=== PATIENT | male | born 1950 | race Caucasian/White ===

== ENCOUNTER 2019-11-19 22:26 | Emergency (ER) | payer SELFPAY ==
[2019-11-19] MEDS ORDERED: MVI, ADULT NO.4 WITH VIT K 10 ML, THIAMINE HCL IV 100 MG in 0.9 % SODIUM CHLORIDE 1000M... IV SCH ×3 (23:00)
[2019-11-19 23:14] LABS: ABSOLUTE NEUTROPHIL COUNT 5.85; BASO % 0.8 % (0-6); EOS % 2.6 % (0-6); GRAN % 65.4 % (47-80); HEMATOCRIT 38.7 % (42.0-52.0); HEMOGLOBIN 12.7 gm/dl (14.0-18.0); LYMPH % 23.9 % (16-45); MEAN CELL VOLUME 95.6 fl (81-97); MEAN CORPUSCULAR HGB CONC 32.8 g/dl (32-36); MEAN PLATELET VOLUME 9.6 fl (7.4-10.4); MONO % 7.3 % (0-9); PLATELET COUNT 210 K/uL (130-400); RED BLOOD COUNT 4.05 M/uL (4.40-5.70); RED CELL DISTRIBUTION WIDTH 14.2 % (11.5-14.5); WHITE BLOOD COUNT W/O DIFF 8.9 K/uL (4.2-12.2)
[2019-11-19 23:15] LABS: MEAN CORPUSCULAR HEMOGLOBIN 31.3 pg (27-33)
[2019-11-19 23:34] LABS: BLOOD UREA NITROGEN 11 mg/dL (8-23); CREATININE 0.8 mg/dL (0.7-1.2); EST GLOMERULAR FILTRATION RATE > 60 mL/min
[2019-11-19 23:35] LABS: TOTAL PROTEIN 6.8 g/dL (6.6-8.7)
[2019-11-19 23:36] LABS: ALCOHOL 0.021 g/dL (0-0.010)
[2019-11-19 23:37] LABS: GLUCOSE,RANDOM 86 mg/dL (74-109)
[2019-11-19 23:39] LABS: ALT/SGPT 25 U/L (<41); AST/SGOT 38 U/L (10.0-50.0)
[2019-11-19 23:40] LABS: ALBUMIN 4.5 g/dL (4.0-5.0); ALKALINE PHOSPHATASE 60 U/L (40-129)
--- NOTE | 2019-11-19 23:47 | RADIOLOGY REPORT ---
EXAMINATION: HAND, LEFT 3 VIEWS EXAM DATE: 11/19/2019 11:37 PM TECHNIQUE: 3 views of the left hand. INDICATION: fall, left hand pain COMPARISON: none ENCOUNTER: Initial FINDINGS: No evidence of acute fracture or dislocation. Normal carpal alignment. The joint spaces are preserved . Bone mineralization is normal. IMPRESSION: No evidence of acute fracture.. Dictated by: Yonny Garvey MD on 11/19/2019 11:43 PM. .
--- NOTE | 2019-11-19 23:49 | RADIOLOGY REPORT ---
EXAMINATION: Left Hip Minimum Two Views EXAM DATE: 11/19/2019 11:37 PM TECHNIQUE: AP pelvis and left frog leg lateral hip views INDICATION: fall, left hip pain COMPARISON: None ENCOUNTER: Initial FINDINGS: Acute left femoral neck fracture with cephalad translation of the distal component. No dislocation of the femoral head from the acetabulum. The pelvis appears intact. IMPRESSION: Acute displaced left femoral neck fracture. Dictated by: Yonny Garvey MD on 11/19/2019 11:45 PM. .
--- NOTE | 2019-11-19 23:51 | CT SCAN REPORT ---
EXAMINATION: CT Head without IV Contrast EXAM DATE: 11/19/2019 11:38 PM TECHNIQUE: Standard protocol CT images of the head were obtained without intravenous contrast. Ruiz l and sagittal reconstructed images were created. INDICATION: 69-year-old male fell. Alcohol use. Poor historian. COMPARISON: None. HAND DOMINANCE: Unknown. ENCOUNTER: Initial. FINDINGS: The basal cisterns, ventricular system and sulci overlying the cerebral convexities are well visualiz ed and are normal in appearance for the patient's age. There is nothing to suggest an acute ischemic event, brain parenchymal mass or acute intracranial hem orrhage. There is probably minimal chronic microvascular white matter ischemic change. There is no subdural hematoma. There is no subarachnoid blood. The orbits and mastoid regions are normal in appearance. There is mild mucosal thickening along the p osterior wall of the left sphenoid sinus versus layering mucinous material. There is very mild mucosa l prominence in the maxillary sinuses. There are no fluid levels in the paranasal sinuses. There is no skull fracture. IMPRESSION: 1. No acute intracranial process. 2. Probable minimal chronic microvascular white matter ischemic change. Dictated by: Lionel Cates DO on 11/19/2019 11:44 PM. .
[2019-11-19] MEDS ORDERED: HYDROMORPHONE HCL 2 MG/ML VIAL IVP ONE (23:57)
--- NOTE | 2019-11-20 00:05 | Emergency Department Record ---
History of Present Illness - General Chief Complaint: Fall Injury Stated Complaint: FALL/HIP PAIN Time Seen by Provider: 11/19/19 22:30 Source: Patient, EMS Mode of Arrival: EMS Limitations: No limitations - History of Present Illness Initial Comments: pt was found outside after a slip on the ice. he was unable to get back up. ems felt he was intxicated. he cannot bear weight.it is unknown how long he was outside. it is 16 degrees out. Complaint: Fall Onset/Timin -: Hour(s) Fall From: Standing When Fall Occurred: 1 hour [employer] Fall Witnessed: No Place Fall Occurred: Home Loss of Consciousness: Unsure Prolonged Down Time?: Minute(s) Symptoms Prior to Fall: Other Location: Face, Pelvis Context: Alcohol use Associated Symptoms: Denies - Mariaa Coma Scale Eye Response: (4) Open spontaneously Motor Response: (6) Obeys commands Verbal Response: (5) Oriented Mariaa Total: 15 - Related Data Home Medications Medication Instructions Recorded Confirmed Last Taken Aspirin 1 tab PO DAILY 11/19/19 11/19/19 Unknown Allergies Allergy/AdvReac Type Severity Reaction Status Date / Time No Known Drug Allergies Allergy Verified 11/19/19 22:42 Travel Screening - Travel/Exposure Within Last 30 Days Have you traveled within the last 30 days?: No - Travel/Exposure Within Last Year Have you traveled outside the [place] in the last year?: No - Additonal Travel Details Have you been exposed to anyone with a communicable illness?: No - Travel Symptoms Symptom Screening: None Review of Systems Reviewed: No additional complaints except as noted below Constitutional: Reports: As per HPI. Denies: Chills, Fever, Malaise, Night sweats, Weakness, Weight change Eyes: Reports: As per HPI. Denies: Eye discharge, Eye pain, Photophobia, Vision change ENT: Reports: As per HPI. Denies: Congestion, Dental pain, Ear pain, Epistaxis, Hearing loss, Throat pain Respiratory: Reports: As per HPI. Denies: Cough, Dyspnea, Hemoptysis, Stridor, Wheezes Cardiovascular: Reports: As per HPI. Denies: Arrhythmia, Chest pain, Dyspnea on exertion, Edema, Murmurs, Orthopnea, Palpitations, Paroxysmal nocturnal dyspnea, Rheumatic Fever, Syncope Endocrine: Reports: As per HPI. Denies: Fatigue, Heat or cold intolerance, Polydipsia, Polyuria Gastrointestinal: Reports: As per HPI. Denies: Abdominal pain, Constipation, Diarrhea, Hematemesis, Hematochezia, Melena, Nausea, Vomiting Genitourinary: Reports: As per HPI. Denies: Dysuria, Frequency, Hematuria, Incontinence, Retention, Testicular pain, Testicular mass, Urgency Musculoskeletal: Reports: As per HPI. Denies: Arthralgia, Back pain, Gout, Joint swelling, Myalgia, Neck pain Skin: Reports: As per HPI. Denies: Bruising, Change in color, Change in hair/nails, Lesions, Pruritus, Rash Neurological: Reports: As per HPI. Denies: Abnormal gait, Confusion, Headache, Numbness, Paresthesias, Seizure, Tingling, Tremors, Vertigo, Weakness Psychiatric: Reports: As per HPI. Denies: Anxiety, Auditory hallucinations, Depression, Homicidal thoughts, Suicidal thoughts, Visual hallucinations Hematological/Lymphatic: Reports: As per HPI. Denies: Anemia, Blood Clots, Easy bleeding, Easy bruising, Swollen glands Past Medical History - SOCIAL HISTORY Smoking Status: Current some day smoker Alcohol Use: Heavy Drug Use: None - RESPIRATORY Hx Respiratory Disorders: No - CARDIOVASCULAR Hx Cardio Disorders: No - NEURO Hx Neuro Disorders: No - GI Hx GI Disorders: No - Hx Genitourinary Disorders: No - ENDOCRINE Hx Endocrine Disorders: No - MUSCULOSKELETAL Hx Musculoskeletal Disorders: No - PSYCH Hx Psych Problems: No - HEMATOLOGY/ONCOLOGY Hx Hematology/Oncology Disorders: No Family Medical History Any Significant Family History?: No Physical Exam - General General Appearance: Alert, Oriented x3, Cooperative, Mild distress - Head Head exam: Normal inspection - Eye Eye exam: Normal appearance, PERRL, EOMI Pupils: Normal accommodation - ENT ENT exam: Normal exam, Mucous membranes moist, Normal external ear exam, Normal orophraynx Ear exam: Normal external inspection. negative: External canal tenderness Nasal Exam: Normal inspection. negative: Discharge, Sinus tenderness Mouth exam: Normal external inspection, Tongue normal Teeth exam: Normal inspection. negative: Dental caries Throat exam: Normal inspection. negative: Tonsillar erythema, Tonsillar exudate - Neck Neck exam: Normal inspection, Full ROM. negative: Tenderness - Respiratory Respiratory exam: Normal lung sounds bilaterally. negative: Respiratory distress - Cardiovascular Cardiovascular Exam: Regular rate, Normal rhythm, Normal heart sounds - GI/Abdominal GI/Abdominal exam: Soft, Normal bowel sounds. negative: Tenderness - Rectal Rectal exam: Deferred - exam: Deferred - Extremities Extremities exam: Normal capillary refill, Tenderness (l hip). negative: Full ROM - Back Back exam: Reports: Normal inspection, Full ROM. Denies: Muscle spasm, Rash noted, Tenderness - Neurological Neurological exam: Alert, CN II-XII intact, Normal gait, Oriented X3, Other (pt has difficulty w speech and cooperating. pt appears intoxicated but is not) - Psychiatric Psychiatric exam: Normal affect, Normal mood - Skin Skin exam: Dry, Intact, Normal color, Warm Course Vital Signs 11/19/19 11/19/19 11/19/19 22:32 22:47 23:35 Temperature 98.1 F Pulse Rate [ 89 101 H Pulse Ox Probe] Respiratory 20 20 Rate Blood Pressure 171/123 [Left Arm] Blood Pressure 152/98 [Right Arm] Pulse Ox 98 98 - Reevaluation(s) Reevaluation #1: 11/20/19 00:22 pt is not intoxicated but still appears so, dr sumner made aware Medical Decision Making - Lab Data Result diagrams: 11/19/19 23:08 11/19/19 23:08 Lab Results 11/19/19 11/19/19 Range/Units 23:08 23:08 WBC 8.9 (4.2-12.2) K/uL RBC 4.05 L (4.40-5.70) M/uL Hgb 12.7 L (14.0-18.0) gm/dl Hct 38.7 L (42.0-52.0) % MCV 95.6 (81-97) fl MCH 31.3 (27-33) pg MCHC 32.8 (32-36) g/dl RDW 14.2 (11.5-14.5) % Plt Count 210 (130-400) K/uL MPV 9.6 (7.4-10.4) fl Gran % 65.4 (47-80) % Lymphocytes % 23.9 (16-45) % Monocytes % 7.3 (0-9) % Eosinophils % 2.6 (0-6) % Basophils % 0.8 (0-6) % Absolute Neutrophils 5.85 Sodium 136 (136-145) mmol/L Potassium 3.9 (3.4-4.5) mmol/L Chloride 97 L (98-107) mmol/L Carbon Dioxide 24.0 (22-29) mmol/L Anion Gap 15.0 (7-16) BUN 11 (8-23) mg/dL Creatinine 0.8 (0.7-1.2) mg/dL Estimated GFR > 60 mL/min Random Glucose 86 (74-109) mg/dL Calcium 9.1 (8.8-10.2) mg/dL Total Bilirubin 0.30 (0.2-1.0) mg/dL AST 38 (10.0-50.0) U/L ALT 25 (<41) U/L Alkaline Phosphatase 60 (40-129) U/L Total Protein 6.8 (6.6-8.7) g/dL Albumin 4.5 (4.0-5.0) g/dL Globulin 2.3 (1.4-4.8) gm/dL Albumin/Globulin Ratio 2.0 H (1.1-1.8) Ethyl Alcohol 0.021 H (0-0.010) g/dL Disposition Disposition: Transfer Clinical Impression: Neurological abnormality Femoral neck fracture Qualifiers: Encounter type: initial encounter Fracture type: closed Laterality: left Qualified Code(s): S72.002A - Fracture of unspecified part of neck of left femur, initial encounter for closed fracture Disposition: Still a Patient at [facility] For Transfer: needs orthopedics Accepting Physician: dr burak brice Time Discussed w/Accepting Physician: 00:18 Quality - Quality Measures Quality Measures: N/A - Blood Pressure Screening Does Patient Have Any of the Following: No Blood Pressure Classification: Hypertensive Reading Systolic Measurement: 152 Diastolic Measurement: 98 Screening for High Blood Pressure: < First Hypertensive BP, F/U Documented > [G8950] First Hypertensive Follow-up Interventions: Follow-up with rescreen GT 1 day and LT 4 weeks.
[2019-11-20] MEDS ORDERED: HYDROMORPHONE HCL 2 MG/ML VIAL IVP ONE ×2 (00:36→01:11)
== END 2019-11-20 01:35 | disposition short-term general hospital (02) ==
LOC: ER 22:26
DX: S72.002A Fracture of unspecified part of neck of left femur, initial encounter for closed fracture (principal); R29.818 Other symptoms and signs involving the nervous system; Y92.009 Unspecified place in unspecified non-institutional (private) residence as the place of occurrence of the external cause; F17.210 Nicotine dependence, cigarettes, uncomplicated
CPT/HCPCS: 70450; 80053; 80320; 85025; 93005; 93010; 96365; 96375; 96376; 99285; J3411; J7030